=== PATIENT | male | born 1990 | race Hispanic/Latino ===

== ENCOUNTER 2018-04-21 15:31 | Emergency (ER) | payer SELFPAY ==
[2018-04-21] MEDS ORDERED: TETRACAINE HCL 0.5% 2ML OPTH ONE (16:27)
[2018-04-21] MEDS ORDERED: FLUORESCEIN SODIUM 0.6 MG/WRAP ONE (16:28)
--- NOTE | 2018-04-21 16:41 | EDPHYS ---
Physician Documentation [facility] Name: Sam Iglesias Jr Age: 28 yrs Sex: Male : 1990 Arrival Date: 04/21/2018 Time: 15:35 Bed 26 Private MD: ED Physician Alan Acuna HPI: 04/21 16:49 This 28 yrs old Male presents to ER via Ambulatory with complaints of Redness snw of Eye. 16:49 The patient is experiencing foreign body sensation, pain, redness, tearing, The patient snw sustained a splash, to the right eye, caused by muddy water. Onset: The symptoms/episode began/occurred suddenly, 2 day(s) ago, and became persistent. Duration: the symptoms are continuous. Aggravated by blinking, light, opening eye, pressure, rubbing. Associated signs and symptoms: Pertinent positives: headache, runny nose. Patient does not utilize any form of vision correction. Severity of symptoms: At their worst the symptoms were moderate severe in the emergency department the symptoms are unchanged. The patient has not experienced similar symptoms in the past. The patient has not recently seen a physician. Historical: - Allergies: 15:51 No Known Allergies; aj - Home Meds: 15:51 None [Active]; aj - PMHx: 15:51 None; aj - PSHx: 15:51 None; aj - Immunization history:: Last tetanus immunization: unknown. - Social history:: Smoking status: Patient uses tobacco products, smokes one pack cigarettes per day. Patient uses street drugs, marijuana. - Ebola Screening: : Patient negative for fever greater than or equal to 101.5 degrees Fahrenheit, and additional compatible Ebola Virus Disease symptoms Patient denies exposure to infectious person Patient denies travel to an Ebola-affected area in the 21 days before illness onset No symptoms or risks identified at this time. ROS: 16:49 Constitutional: Negative for fever, chills, and weight loss, ENT: Negative for injury, snw pain, and discharge, Neck: Negative for injury, pain, and swelling, Cardiovascular: Negative for chest pain, palpitations, and edema, Respiratory: Negative for shortness of breath, cough, wheezing, and pleuritic chest pain, Abdomen/GI: Negative for abdominal pain, nausea, vomiting, diarrhea, and constipation, Back: Negative for injury and pain, : Negative for injury, bleeding, discharge, and swelling, MS/Extremity: Negative for injury and deformity, Skin: Negative for injury, rash, and discoloration, Neuro: Negative for headache, weakness, numbness, tingling, and seizure. 16:49 Eyes: Positive for foreign body sensation, pain, tearing, of the iris of right eye. Exam: 16:46 Constitutional: This is a well developed, well nourished patient who is awake, alert, snw and in no acute distress. Head/Face: Normocephalic, atraumatic. ENT: Nares patent. No nasal discharge, no septal abnormalities noted. Tympanic membranes are normal and external auditory canals are clear. Oropharynx with no redness, swelling, or masses, exudates, or evidence of obstruction, uvula midline. Mucous membranes moist. Neck: Trachea midline, no thyromegaly or masses palpated, and no cervical lymphadenopathy. Supple, full range of motion without nuchal rigidity, or vertebral point tenderness. No Meningismus. Chest/axilla: Normal chest wall appearance and motion. Nontender with no deformity. No lesions are appreciated. Cardiovascular: Regular rate and rhythm with a normal S1 and S2. No gallops, murmurs, or rubs. Normal PMI, no JVD. No pulse deficits. Respiratory: Lungs have equal breath sounds bilaterally, clear to auscultation and percussion. No rales, rhonchi or wheezes noted. No increased work of breathing, no retractions or nasal flaring. Abdomen/GI: Soft, non-tender, with normal bowel sounds. No distension or tympany. No guarding or rebound. No evidence of tenderness throughout. Back: No spinal tenderness. No costovertebral tenderness. Full range of motion. Skin: Warm, dry with normal turgor. Normal color with no rashes, no lesions, and no evidence of cellulitis. MS/ Extremity: Pulses equal, no cyanosis. Neurovascular intact. Full, normal range of motion. Neuro: Awake and alert, GCS 15, oriented to person, place, time, and situation. Cranial nerves II-XII grossly intact. Motor strength 5/5 in all extremities. Sensory grossly intact. Cerebellar exam normal. Normal gait. Psych: Awake, alert, with orientation to person, place and time. Behavior, mood, and affect are within normal limits. 16:46 Eyes: Periorbital structures: appear normal, Pupils: no acute changes, Extraocular movements: intact throughout, Conjunctiva: injected, in the right eye, Corneas: abrasion, foreign body, a fluorescein strip employed to appreciate the findings, Nystagmus: is not appreciated. Vital Signs: 15:51 BP 127 / 82; Pulse 83; Resp 17; Temp 97.5; Pulse Ox 99% on R/A; Weight 90.72 kg; Height aj 5 ft. 4 in. (162.56 cm); 16:40 BP 125 / 84; Pulse 93; Resp 18; Pulse Ox 97% on R/A; tl3 15:51 Body Mass Index 34.33 (90.72 kg, 162.56 cm) aj Procedures: 16:46 Eye Exam: Tetracaine. snw MDM: 16:10 Patient medically screened. snw 16:46 Data reviewed: vital signs, nurses notes. Data interpreted: Pulse oximetry: on room air snw is 97 %. Interpretation: normal. Counseling: I had a detailed discussion with the patient and/or guardian regarding: the historical points, exam findings, and any diagnostic results supporting the discharge/admit diagnosis, the presence of at least one elevated blood pressure reading (>120/80) during this emergency department visit, the need for outpatient follow up, an opthalmologist. Response to treatment: There is no appreciated change of the patient's symptoms at this time. Physician consultation: Marilee Williamson MD was called at 16:48, was contacted at 16:48, regarding patient's condition, need to evaluate the patient as soon as possible, to office now. Special discussion: Based on the history and exam findings, there is no indication for further emergent testing or inpatient evaluation. I discussed with the patient/guardian the need to see the opthamologist for further evaluation of the symptoms. Administered Medications: No medications were administered Disposition: 17:53 Co-signature as Attending Physician, Alan Acuna MD. rn Disposition: 04/21/18 16:41 Discharged to Home. Impression: Corneal injury and abrasion with foreign body. - Condition is Stable. - Discharge Instructions: Corneal Abrasion, Eye Foreign Body. - Medication Reconciliation Form, Thank You Letter, Antibiotic Education, Prescription Opioid Use form. - Follow up: Marilee Williamson MD; When: Upon discharge from the Emergency Department; Reason: Continuance of care. Signatures: Luzmaria Stout RN RN aj Therrien, Shelly, RECEIVING MANAGER-C RECEIVING MANAGER-Csnw lAan Acuna MD MD rn Lowrey, Tammy, RN RN tl3 Corrections: (The following items were deleted from the chart) 16:50 16:41 04/21/2018 16:41 Discharged to Home. Impression: Corneal injury and abrasion with tl3 foreign body. Condition is Stable. Forms are Medication Reconciliation Form, Thank You Letter, Antibiotic Education, Prescription Opioid Use. Follow up: Marilee Williamson; When: Upon discharge from the Emergency Department; Reason: Continuance of care. snw
--- NOTE | 2018-04-21 16:41 | ER ---
Nurse's Notes [facility] Name: Sam Iglesias Jr Age: 28 yrs Sex: Male : 1990 Arrival Date: 04/21/2018 Time: 15:35 Bed 26 Private MD: Diagnosis: Corneal injury and abrasion with foreign body Presentation: 04/21 15:50 Presenting complaint: Patient states: Right eye redness for 2 days after having "brown aj water" splashed in eye. Denies discharge. Reports pain to eye. Transition of care: patient was not received from another setting of care. Onset of symptoms was April 19, 2018. Risk Assessment: Do you want to hurt yourself or someone else? Patient reports no desire to harm self or others. Initial Sepsis Screen: Does the patient meet any 2 criteria? No. Patient's initial sepsis screen is negative. Does the patient have a suspected source of infection? No. Patient's initial sepsis screen is negative. Care prior to arrival: None. 15:50 Method Of Arrival: Ambulatory 15:50 Acuity: DENNIS 2 aj Triage Assessment: 15:51 General: Appears in no apparent distress. comfortable, Behavior is calm, cooperative, aj appropriate for age. Pain: Complains of pain in right eye. EENT: Sclera/Cornea are reddened in outer aspect of conjuctiva of right eye, iris of right eye and inner aspect of conjuctiva of right eye Reports pain in right eye. Neuro: Level of Consciousness is awake, alert, obeys commands, Oriented to person, place, time, situation, Appropriate for age. Respiratory: Airway is patent Respiratory effort is even, unlabored, Respiratory pattern is regular, symmetrical. Derm: Skin is intact, is healthy with good turgor, Skin is pink, warm \\T\\ dry. normal. Historical: - Allergies: 15:51 No Known Allergies; aj - Home Meds: 15:51 None [Active]; aj - PMHx: 15:51 None; aj - PSHx: 15:51 None; aj - Immunization history:: Last tetanus immunization: unknown. - Social history:: Smoking status: Patient uses tobacco products, smokes one pack cigarettes per day. Patient uses street drugs, marijuana. - Ebola Screening: : Patient negative for fever greater than or equal to 101.5 degrees Fahrenheit, and additional compatible Ebola Virus Disease symptoms Patient denies exposure to infectious person Patient denies travel to an Ebola-affected area in the 21 days before illness onset No symptoms or risks identified at this time. Screenin:22 Abuse screen: Denies threats or abuse. Nutritional screening: No deficits noted. tl3 Tuberculosis screening: No symptoms or risk factors identified. Fall Risk None identified. Assessment: 16:22 General: Appears uncomfortable, well groomed, well developed, well nourished, Behavior tl3 is calm, cooperative, appropriate for age. General: pt reports getting "dirty water" into his eye day before yesterday. Pain: Complains of pain in right eye. Neuro: Level of Consciousness is awake, alert, obeys commands, Oriented to person, place, time, situation, Appropriate for age. Cardiovascular: Patient's skin is warm and dry. Respiratory: Airway is patent Respiratory effort is even, unlabored, Respiratory pattern is regular, symmetrical. GI: No signs and/or symptoms were reported involving the gastrointestinal system. : No signs and/or symptoms were reported regarding the genitourinary system. EENT: Eyes are tearing on outer aspect of conjuctiva of right eye, iris of right eye and inner aspect of conjuctiva of right eye red, painful with movement. Derm: No signs and/or symptoms reported regarding the dermatologic system. Musculoskeletal: No signs and/or symptoms reported regarding the musculoskeletal system. Vital Signs: 15:51 BP 127 / 82; Pulse 83; Resp 17; Temp 97.5; Pulse Ox 99% on R/A; Weight 90.72 kg; Height aj 5 ft. 4 in. (162.56 cm); 16:40 BP 125 / 84; Pulse 93; Resp 18; Pulse Ox 97% on R/A; tl3 15:51 Body Mass Index 34.33 (90.72 kg, 162.56 cm) aj ED Course: 15:35 Patient arrived in ED. mr 15:51 Triage completed. aj 15:51 Arm band placed on left wrist. Patient placed in waiting room, Patient notified of wait aj time. 16:00 [facility] snw 16:00 Alan Acuna MD is Attending Physician. snw 16:22 Saundra Suarez RN is Primary Nurse. tl3 16:22 Patient has correct armband on for positive identification. tl3 16:22 Assist provider with eye exam of right eye. using fluorescein stain, Performed by tl3 Quyen CONN. 16:40 Marilee Williamson MD is Referral Physician. snw 16:48 Patient did not have IV access during this emergency room visit. tl3 Administered Medications: No medications were administered Outcome: 16:41 Discharge ordered by . snw 16:[address] Office for eye exam tl3 16:48 Condition: stable 16:48 Discharge instructions given to patient, Instructed on driving directly to the Opth. office, they were waiting on him Demonstrated understanding of instructions. 16:50 Patient left the ED. tl3 Signatures: Luzmaria Stout, Quyen Chou RN, FNP-C FNP-Csnw Jj Carmen abraham Saundra Suarez, KELSEY RN tl3
== END 2018-04-21 16:50 | disposition home or self-care (01) ==
LOC: ER 15:31
DX: T15.01XA Foreign body in cornea, right eye, initial encounter (principal); W22.8XXA Striking against or struck by other objects, initial encounter; Y93.9 Activity, unspecified; Y92.9 Unspecified place or not applicable
CPT/HCPCS: 99283